=== PATIENT | female | born 1990 | race Caucasian/White ===

== ENCOUNTER 2023-06-26 17:35 | Emergency (ER) | payer OTHER, SELFPAY ==
[2023-06-26 17:39] VITALS: BP 143/93; PULSE 85; RESP 16; TEMP 36.7; O2SAT 96; BMI 28.0
--- NOTE | 2023-06-26 17:56 | CT_ITS ---
The [address] [address] Patient Name: GIOVANNA CASTILOL MRN: [id number] date: 1990 Sex: F Assigned Patient Location: ER Current Patient Location: ER Accession/Order Number: [id number] Exam Date: 06/26/2023 18:38 Report Date: 06/26/2023 19:56 At the request of: RENNY GIVENS Procedure: CT abdomen pelvis w con EXAM: CT abdomen pelvis w con. HISTORY: Abdominal pain. Concern for hernia. COMPARISON: None. TECHNIQUE: Enhanced helical acquisition obtained through the abdomen and the pelvis. FINDINGS: Visualized lung bases and the pleural spaces are clear. Partial exclusion of the dome of the liver. Unremarkable gallbladder. No significant biliary ductal dilatation. The spleen, pancreas, adrenal glands and the kidneys are unremarkable. No enlarged lymph nodes within the abdomen or the pelvis. Normal appendix. Prominent soft tissue medial aspect of the cecum at the level of the ileocecal valve measuring 5.9 x 5 cm. Moderate stool burden within the colon. No ascites or focal intraperitoneal fluid collections. No enlarged lymph nodes within the pelvis. CT/CT abdomen pelvis w con IMPRESSION: 1. No evidence of abdominal wall hernia. 2. Normal appendix. Prominent soft tissue medial aspect of the cecum at the level of the ileocecal valve measuring approximately 5.9 x 5 cm. Correlation with colonoscopy is suggested. 3. Moderate stool burden throughout the colon. Electronically authenticated by: JEANNIE FAJARDO Date: 06/26/2023 19:56
--- NOTE | 2023-06-26 17:57 | ED.ABDPAIN1 ---
HPI - Abdominal Pain General Chief Complaint: Abdominal Pain Stated Complaint: Hernia Time Seen by Provider: 06/26/23 17:39 Source: patient Mode of arrival: walk-in History of Present Illness HPI narrative: 33-year-old female presented to the emergency department for abdominal pain. She's complaining of pain to the right of the umbilicus and she's had it for a week. She thinks she might have a hernia, her sister told her she might. No constipation vomiting or diarrhea. No trauma. No dysuria. Related Data Allergies Allergy/AdvReac Type Severity Reaction Status Date / Time amoxicillin Allergy Severe Verified 06/26/23 17:39 Review of Systems ROS Narrative A ten point review of systems is negative except as noted above. Exam Narrative Exam Narrative: Nurses note and vital signs reviewed and patient is not hypoxic. General: The patient appears well and in no apparent distress. Patient is resting comfortably on cart. Skin: Warm, dry, no pallor noted. There is no rash noted. Head: Normocephalic, atraumatic Eye: Normal conjunctiva, no drainage Ears, Nose, Mouth, and Throat: oral mucosa is moist. Nares patent. Cardiovascular: Regular Rate and Rhythm Respiratory: Patient is in no distress, no accessory muscle use, lungs are clear to auscultation, no wheezing, rales or rhonchi Back: non-tender GI: no distention or mass. There is some tenderness to the right of the umbilicus but there is no discrete defect noted. Musculoskeletal: The patient has no evidence of calf tenderness, no pitting edema, symmetrical pulses noted bilaterally Neurological: A&O, normal speech Psychiatric: Cooperative Constitutional Vital Signs, click to edit/add: Last Vital Signs Temp 98.1 F 06/26/23 17:39 Pulse 85 06/26/23 17:39 Resp 16 06/26/23 17:39 BP 143/93 H 06/26/23 17:39 Pulse Ox 96 06/26/23 17:39 O2 Del Method Room Air 06/26/23 17:39 Course Vital Signs Vital signs: Vital Signs Temperature 98.1 F 06/26/23 17:39 Pulse Rate 85 06/26/23 17:39 Respiratory Rate 16 06/26/23 17:39 Blood Pressure 143/93 H 06/26/23 17:39 Pulse Oximetry 96 06/26/23 17:39 Oxygen Delivery Method Room Air 06/26/23 17:39 Temperature 98.1 F 06/26/23 17:39 Pulse Rate 85 06/26/23 17:39 Respiratory Rate 16 06/26/23 17:39 Blood Pressure 143/93 H 06/26/23 17:39 Pulse Oximetry 96 06/26/23 17:39 Oxygen Delivery Method Room Air 06/26/23 17:39 MDM - Abdominal Pain MDM Narrative Medical decision making narrative: CT scan is pending and the patient is signed out to Dr. Xavier. Lab Data Attestation: I reviewed the patient's lab results. Labs: Lab Results 06/26/23 Range/Units 18:00 WBC 12.4 H (4.0-11.0) 10^3/uL RBC 4.52 (4.20-5.40) 10^6/uL Hgb 13.5 (12.0-16.0) g/dL Hct 41.3 (36.0-48.0) % MCV 91.4 (81.0-99.0) fL MCH 29.9 (26.7-34.0) pg MCHC 32.7 (29.9-35.2) g/dL RDW 13.2 (11.0-15.0) % Plt Count 317 (150-450) 10^3/uL MPV 11.1 (9.5-13.5) fL Neut % (Auto) 66.6 (43.0-75.0) % Lymph % (Auto) 26.5 (20.5-60.0) % [place] % (Auto) 5.0 (1.7-12.0) % Eos % (Auto) 1.0 (0.9-7.0) % Baso % (Auto) 0.6 (0.2-2.0) % Neut # (Auto) 8.3 H (1.4-6.5) 10^3/uL Lymph # (Auto) 3.3 (1.2-3.8) 10^3/uL Norman # (Auto) 0.6 (0.3-0.8) 10^3/uL Eos # (Auto) 0.1 (0.0-0.7) 10^3/uL Baso # (Auto) 0.1 (0.0-0.1) 10^3/uL Abs Immat Gran (auto) 0.04 H (0.00-0.03) 10^3/uL Imm/Tot Granulo (auto) 0.3 (0.0-0.5) % Sodium 138 (136-145) mmol/L Potassium 3.7 (3.5-5.1) mmol/L Chloride 101 (98-107) mmol/L Carbon Dioxide 28.5 (21.0-32.0) mmol/L Anion Gap 12.2 BUN 14.0 (7.0-18.0) mg/dL Creatinine 0.87 (0.55-1.02) mg/dL Est GFR ( Amer) >60 (>=60) Est GFR (Non-Af Amer) >60 (>=60) BUN/Creatinine Ratio 16.1 Glucose 88 (74-106) mg/dL Calcium 9.8 (8.5-10.1) mg/dL Serum HCG, Qual Negative (NEGATIVE) Urine Color Lt. yellow (YELLOW) Urine Clarity Clear (CLEAR) Urine pH 6.0 (5.0-9.0) Ur Specific [place] <=1.005 A (1.005-1.025) Urine Protein Negative (NEG/TRACE) mg/dL Urine Glucose (UA) Negative (NEGATIVE) mg/dL Urine Ketones Negative (NEGATIVE) mg/dL Urine Occult Blood Negative (NEGATIVE) Urine Nitrite Negative (NEGATIVE) Urine Bilirubin Negative (NEGATIVE) Urine Urobilinogen 0.2 (0.2-1.0) EU/dL Ur Leukocyte Esterase Negative (NEGATIVE) Urine RBC None seen (0-2) #/HPF Urine WBC None seen (NONE SEEN) #/HPF Ur Squamous Epith Cells Few A (NONE/RARE) #/LPF Urine Crystals None seen (None Seen) #/HPF Urine Bacteria None seen (NONE SEEN) #/HPF Urine Casts None seen (NONE SEEN) #/LPF Urine Mucus None seen (NONE SEEN) Ur Culture Indicated? No Discharge Plan Discharge Chief Complaint: Abdominal Pain Clinical Impression: Abdominal pain Patient Disposition: Still a Patient Referrals: Physician,Non-Staff, [Primary Care Provider] - 1 week
[2023-06-26 18:12] LABS: Basophils Absolute Auto 0.1 10^3/uL (0.0-0.1); Basophils Percent Auto 0.6 % (0.2-2.0); Eosinophils Absolute Auto 0.1 10^3/uL (0.0-0.7); Hematocrit 41.3 % (36.0-48.0); Hemoglobin 13.5 g/dL (12.0-16.0); Immature Granulocytes Abs Auto 0.04 10^3/uL (0.00-0.03); Immature Granulocytes Pct Auto 0.3 % (0.0-0.5); Lymphocytes Absolute Auto 3.3 10^3/uL (1.2-3.8); Lymphocytes Percent Auto 26.5 % (20.5-60.0); Mean Corpuscular HGB Conc 32.7 g/dL (29.9-35.2); Mean Corpuscular Hemoglobin 29.9 pg (26.7-34.0); Mean Corpuscular Volume 91.4 fL (81.0-99.0); Mean Platelet Volume 11.1 fL (9.5-13.5); Monocytes Absolute Auto 0.6 10^3/uL (0.3-0.8); Neutrophils Absolute Auto 8.3 10^3/uL (1.4-6.5); Neutrophils Percent Auto 66.6 % (43.0-75.0); Platelet Count 317 10^3/uL (150-450); Red Blood Count 4.52 10^6/uL (4.20-5.40); Red Cell Distribution Width 13.2 % (11.0-15.0); White Blood Count 12.4 10^3/uL (4.0-11.0)
[2023-06-26 18:13] LABS: Bilirubin Urine NEGATIVE (NEGATIVE); Blood Urine NEGATIVE (NEGATIVE); Clarity Urine CLEAR (CLEAR); Color Urine LT. YELLOW (YELLOW); Glucose Urine UA NEGATIVE (NEGATIVE); Ketones Urine NEGATIVE (NEGATIVE); Leukocyte Esterase Urine NEGATIVE (NEGATIVE); Nitrite Urine NEGATIVE (NEGATIVE); Protein Urine NEGATIVE (NEG/TRACE); Specific Gravity Urine <=1.005 (1.005-1.025); Urobilinogen Urine 0.2 EU/dL (0.2-1.0)
[2023-06-26 18:18] LABS: Anion Gap 12.2; BUN Creatinine Ratio 16.1; Calcium 9.8 mg/dL (8.5-10.1); Carbon Dioxide 28.5 mmol/L (21.0-32.0); Chloride 101 mmol/L (98-107); Estimated GFR (African America >60 (>=60); Estimated GFR (Non-African Ame >60 (>=60); Glucose 88 mg/dL (74-106); Potassium 3.7 mmol/L (3.5-5.1); Sodium 138 mmol/L (136-145)
[2023-06-26 18:19] LABS: Bacteria Urine NONE SEEN #/HPF (NONE SEEN); RBC Urine NONE SEEN #/HPF (0-2); WBC Urine NONE SEEN #/HPF (NONE SEEN)
[2023-06-26 18:20] LABS: Cast Seen? NONE SEEN #/LPF (NONE SEEN); Crystals Seen? None Seen #/HPF (None Seen); Mucus Urine NONE SEEN (NONE SEEN); Squamous Epithelial Cell Urine FEW #/LPF (NONE/RARE); Urine Culture Indicated NO
[2023-06-26 18:21] LABS: HCG Qualitative NEGATIVE (NEGATIVE)
--- NOTE | 2023-06-26 18:44 | XR_ITS ---
The [address] [address] Patient Name: GIOVANNA CASTILLO MRN: [id number] date: 1990 Sex: F Assigned Patient Location: ER Current Patient Location: ER Accession/Order Number: [id number] Exam Date: 06/26/2023 18:53 Report Date: 06/26/2023 19:46 At the request of: RENNY GIVENS Procedure: XR shoulder LT min 2V EXAM: XR shoulder LT min 2V HISTORY: fall with left shoulder pain. COMPARISON: None. TECHNIQUE: 4 views of the left shoulder were obtained. FINDINGS: The glenohumeral and acromioclavicular joints are preserved. The subacromial space is maintained. No evidence of fracture or dislocation. XR/XR shoulder LT min 2V IMPRESSION: Unremarkable left shoulder. Electronically authenticated by: JEANNIE FAJARDO Date: 06/26/2023 19:46
[2023-06-26] MEDS: KETOROLAC TROMETHAMINE 30 MG/ML VIAL IVP (19:54)
== END 2023-06-26 20:34 | disposition home or self-care (01) ==
PROVIDERS: Emergency Medicine; Emergency Provider Internal Medicine
DX: R10.9 Unspecified abdominal pain (principal); R19.00 Intra-abdominal and pelvic swelling, mass and lump, unspecified site
CPT/HCPCS: 36415; 73030; 74177; 80048; 81001; 84703; 85025; 96374; 99285; Q9967

== ENCOUNTER 2024-01-04 10:08 | Outpatient (OUT) | payer OTHER, SELFPAY ==
[2024-01-04 13:41] LABS: Bilirubin Urine NEGATIVE (NEGATIVE); Blood Urine NEGATIVE (NEGATIVE); Clarity Urine CLEAR (CLEAR); Color Urine LT. YELLOW (YELLOW); Glucose Urine UA NEGATIVE (NEGATIVE); Ketones Urine NEGATIVE (NEGATIVE); Leukocyte Esterase Urine NEGATIVE (NEGATIVE); Nitrite Urine NEGATIVE (NEGATIVE); Protein Urine NEGATIVE (NEG/TRACE); Specific Gravity Urine 1.025 (1.005-1.025); Urobilinogen Urine 0.2 EU/dL (0.2-1.0); pH Urine 6.5 (5.0-9.0)
[2024-01-04 13:46] LABS: Urine Microscopic Indicated NO
== END 2024-01-04 10:09 | disposition home or self-care (01) ==
LOC: LAB 10:11
PROVIDERS: Visit Provider Family Medicine
DX: N39.0 Urinary tract infection, site not specified (principal)
CPT/HCPCS: 81003

== ENCOUNTER 2024-12-28 18:21 | Emergency (ER) | payer SELFPAY ==
[2024-12-28 18:25] VITALS: BP 161/86; PULSE 100; TEMP 36.7; O2SAT 98; BMI 27.8
--- NOTE | 2024-12-28 18:37 | ED.GENADUL1 ---
HPI HPI - General Adult General Chief complaint: Headache Stated complaint: Headache Time Seen by Provider: 12/28/24 18:35 Source: patient Mode of arrival: walk-in Limitations: no limitations History of Present Illness HPI narrative: 34 year old female presents to the ED for right-sided neck pain. Onset was a few days ago upon waking. The pain is worse with rotation. Denies injury, fever, chills, weakness, N/T. Denies chance of . She tried Tylenol and Motrin without relief. Related Data Home Medications ?Medication ?Instructions ?Recorded ?Confirmed citalopram 20 mg tablet 20 mg PO DAILY 12/28/24 12/28/24 fluticasone propionate 50 1 spray intranasal Q12H 12/28/24 12/28/24 mcg/actuation nasal spray,suspension lamotrigine 100 mg tablet 100 mg PO Q8H 12/28/24 12/28/24 lisdexamfetamine 50 mg capsule 50 mg PO DAILY 12/28/24 12/28/24 ondansetron 8 mg disintegrating 8 mg PO Q8H PRN nausea and vomiting 12/28/24 12/28/24 tablet rizatriptan 10 mg tablet 10 mg PO Q2H PRN migraine headache 12/28/24 12/28/24 Previous Rx's ?Medication ?Instructions ?Recorded oxycodone-acetaminophen 5 mg-325 1 tab PO Q8H PRN pain 4 days #12 12/28/24 mg tablet (Percocet) tabs prednisone 20 mg tablet 40 mg (2 x 20 mg) PO DAILY #10 tabs 12/28/24 tizanidine 4 mg capsule (Zanaflex) 4 mg PO Q8H PRN muscle spasticity 12/28/24 #12 caps Allergies Allergy/AdvReac Type Severity Reaction Status Date / Time No Known Drug Allergies Allergy Verified 12/28/24 18:30 Opioid HPI Opioid Management Most Recent Opioid Data: Last Pain Scale 8 12/28/24 20:42 12/28/24 Review of Systems ROS Constitutional Denies: fever or chills Ears, nose, mouth, and throat Reports: neck pain; Denies: throat pain or difficulty swallowing Cardiovascular Denies: chest pain Respiratory Denies: shortness of breath or cough Gastrointestinal Denies: abdominal pain, nausea or vomiting Musculoskeletal Reports: neck pain; Denies: back pain or extremity pain Neurological Denies: headache, numbness in extremities, weakness in extremities or dizziness PFSH PFSH Social History Little interest or pleasure in doing things: not at all Feeling down, depressed, or hopeless: not at all Exam Constitutional Vital Signs, click to edit/add: Last Vital Signs Temp 98.1 F 12/28/24 18:25 Pulse 100 H 12/28/24 18:25 Resp 18 12/28/24 18:25 BP 161/86 H 12/28/24 18:25 Pulse Ox 98 12/28/24 18:25 Common normals: no apparent distress and oriented x3 General appearance: cooperative Eye Common normals: conjunctivae normal and no scleral icterus Neck & C-Spine Common normals: supple General: no tracheal deviation Cervical spine: paracervical muscle tenderness right and paracervical muscle spasm right; no cervical spine tenderness Chest Chest: symmetrical chest wall rise Cardio Common normals: regular rate and regular rhythm Peripheral pulses: radial pulses present Other: Moves extremities. Neuro Common normals: oriented x3, CN's II-XII intact bilaterally, moves all extremities and no focal motor deficits Speech: speech normal Course Vital Signs Vital signs: Vital Signs Temperature 98.1 F 12/28/24 18:25 Pulse Rate 100 H 12/28/24 18:25 Respiratory Rate 18 12/28/24 18:25 Blood Pressure 161/86 H 12/28/24 18:25 Pulse Oximetry 98 12/28/24 18:25 Temperature 98.1 F 12/28/24 18:25 Pulse Rate 100 H 12/28/24 18:25 Respiratory Rate 18 12/28/24 18:25 Blood Pressure 161/86 H 12/28/24 18:25 Pulse Oximetry 98 12/28/24 18:25 Medical Decision Making MDM Narrative Medical decision making narrative: The patient was given IM and oral medication with some improvement. OARRS was reviewed. Prescriptions were provided for prednisone, Zanaflex, and Percocet. Follow up with pcp for a recheck, further evaluation and treatment. Family was present for a ride home. Medical Records Medical records reviewed: Yes I reviewed the patient's medical records Discharge Plan Discharge Chief Complaint: Headache Clinical Impression: Neck pain, Acute torticollis Patient Disposition: Home, Self-Care Time of Disposition Decision: 21:40 Condition: Good Mode of Transportation: Private Vehicle Prescriptions / Home Meds: New tizanidine [Zanaflex] 4 mg capsule 4 mg PO Q8H PRN (Reason: muscle spasticity) Qty: 12 0RF oxycodone-acetaminophen [Percocet] 5-325 mg tablet 1 tab PO Q8H PRN (Reason: pain) 4 Days Qty: 12 0RF prednisone 20 mg tablet 40 mg PO DAILY Qty: 10 0RF No Action citalopram 20 mg tablet 20 mg PO DAILY fluticasone propionate 50 mcg/actuation spray,suspension 1 spray INTRANASAL Q12H lamotrigine 100 mg tablet 100 mg PO Q8H lisdexamfetamine 50 mg capsule 50 mg PO DAILY ondansetron 8 mg tablet,disintegrating 8 mg PO Q8H PRN (Reason: nausea and vomiting) rizatriptan 10 mg tablet 10 mg PO Q2H PRN (Reason: migraine headache) Print Language: [place] Instructions: Neck Pain (ED) Additional Instructions: Follow up with your primary care provider for further evaluation and treatment. Return to the ER for worsening symptoms. Referrals: Physician,Non-Staff, MD [Primary Care Provider] - 1 week
[2024-12-28] MEDS: KETOROLAC TROMETHAMINE 30 MG/ML VIAL IM (18:47)
[2024-12-28] MEDS: DEXAMETHASONE SOD PHOS 10 MG/ML VIAL IM (18:47)
[2024-12-28] MEDS: ORPHENADRINE 60 MG/2 ML VIAL IM (18:47)
[2024-12-28] MEDS: HYDROMORPHONE HCL 1 MG/ML CARTRIDGE IM (19:30)
[2024-12-28] MEDS: OXYCODONE HCL/ACETAMINOPHEN 5MG/325MG 2 TAB PO (20:42)
[2024-12-28 22:21] VITALS: BP 142/78; O2SAT 98
== END 2024-12-28 22:24 | disposition home or self-care (01) ==
PROVIDERS: Emergency Provider Emergency Medicine
DX: M43.6 Torticollis (principal); M54.2 Cervicalgia
CPT/HCPCS: 96372; 99284; J1100; J1171; J1885; J2360